=== PATIENT | male | born 1945 | race African-American/Black ===

== ENCOUNTER 2018-07-12 22:30 | Emergency (ER) | payer OTHER ==
[~2018-07-12] VITALS: Ht 188 cm; Wt 73.0 kg
[~2018-07-12 22:30] MED LIST: BENZAPRIL
[2018-07-12 22:33] VITALS: BP 155/88
== END 2018-07-13 00:16 | disposition home or self-care (01) ==
LOC: ED 23:00
DX: S09.90XA Unspecified injury of head, initial encounter (principal); I10 Essential (primary) hypertension; X58.XXXA Exposure to other specified factors, initial encounter; Y93.89 Activity, other specified; Y92.89 Other specified places as the place of occurrence of the external cause; Y99.8 Other external cause status
CPT/HCPCS: 99281